=== PATIENT | female | born 1975 | race Caucasian/White ===

== ENCOUNTER 2019-08-17 10:19 | Emergency (ER) | payer OTHER, SELFPAY ==
[2019-08-17 10:44] VITALS: BP 147/85; PULSE 56; RESP 18; TEMP 36.4; O2SAT 100
[2019-08-17] MEDS: SODIUM CHLORIDE 0.9% IV 1,000 ML 999 ML IV CONT (11:37)
[2019-08-17] MEDS: KETOROLAC 30 MG/ML VIAL (*BKC) IV PUSH (11:38)
[2019-08-17] MEDS: METOCLOPRAMIDE HCL INJ 10 MG/2 ML VIAL IV PUSH (11:38)
--- NOTE | 2019-08-17 11:42 | ED.HA ---
HPI - Headache General Chief Complaint: Headache Stated Complaint: MIGRAINE Time Seen by Provider: 08/17/19 11:09 Source: patient Mode of arrival: ambulatory Limitations: no limitations History of Present Illness HPI Narrative: This is a 44 year old female that presents to the ER for migraine since this morning. Reports a throbbing pain on the right frontal region. Associated with nausea. Also reports some photophobia and blurry vision. Reports a history of migraines. She tried to take an anti-inflammatory earlier this morning with little relief. Denies fever, stiff neck, vomiting, numbness or weakness. Related Data Home Medications Medication Instructions Recorded Confirmed sertraline mg 08/17/19 trazodone 08/17/19 Allergies Allergy/AdvReac Type Severity Reaction Status Date / Time codeine Allergy Unknown Confusion Verified 08/17/19 10:47 Review of Systems Review of Systems: Narrative: CONSTITUTIONAL: Denies fever ENT: Denies rhinorrhea, congestion, sore throat GASTROINTESTINAL: Denies vomiting NEUROLOGIC: Reports headache. Denies numbness, or weakness. All systems reviewed & are unremarkable except as noted in HPI and below PMFSH Past Medical History Medical History (Updated 08/17/19 @ 12:44 by Mary Kay Hernandez PA-C) History of anxiety History of depression History of migraine Surgical History Surgical History (Updated 08/17/19 @ 11:46 by Mary Kay Hernandez PA-C) History of inguinal hernia repair Social History Social History (Updated 08/17/19 @ 11:46 by Mary Kay Hernandez PA-C) Smoking status: Never smoker Substance use: never Gender identity (if verbalized by the patient): Female Exam Narrative: Exam Narrative: GENERAL: Well-appearing, well-nourished, and in mild acute distress due to pain. HEAD: Normocephalic, atraumatic. EYES: PERRLA and EOMI. ENT: Nares clear, no rhinorrhea or epistaxis. Mucous membranes moist. Oropharynx without tonsillar hypertrophy exudate or other lesions. Bilateral TMs pearly benton non-bulging NECK: Supple. No adenopathy or masses. CHEST: Clear to auscultation. No respiratory distress. No wheezes rales or rhonchi HEART: Regular rate and rhythm. No murmur heard. Normal peripheral pulses. EXTREMITIES: Normal range of motion. No edema. Strength equal in bilateral upper extremities (5/5) SKIN: Warm, dry, no rash. NEURO: No focal deficits. Alert and oriented x3. CN II-XII grossly intact PSYCH: Normal mood and affect Course Vital Signs Vital signs: Vital Signs Temperature 97.6 F 08/17/19 10:44 Pulse Rate 56 L 08/17/19 10:44 Respiratory Rate 18 08/17/19 10:44 Blood Pressure 147/85 H 08/17/19 10:44 Pulse Oximetry 100 08/17/19 10:44 Temperature 97.6 F 08/17/19 12:17 Pulse Rate 62 08/17/19 11:43 Respiratory Rate 18 08/17/19 11:43 Blood Pressure 122/68 08/17/19 11:43 Pulse Oximetry 95 08/17/19 11:43 MDM - Headache MDM Narrative Medical decision making narrative: Patient presents the emergency department for migraine headache since this morning. She reports history of migraines. She is neurologically intact. She is afebrile and nontoxic-appearing. She reports relief after migraine cocktail. She is to follow-up with her primary care doctor. She was given warnings to return to the ER Critical Care Time Critical Care Time Critical Care Time: No Discharge Plan Discharge Clinical Impression: Migraine Qualifiers: Migraine type: unspecified Status migrainosus presence: without status migrainosus Intractability: not intractable Qualified Code(s): G43.909 - Migraine, unspecified, not intractable, without status migrainosus Patient Disposition: Home, Self-Care Condition: Stable Instructions: Migraine Headache (ED) Additional Instructions: Return to the emergency department if you experience fever, stiff neck, vision changes, vomiting, sudden onset numbness or weakness, or any other symptoms that are concerning to y
[2019-08-17 11:43] VITALS: BP 122/68; PULSE 62; RESP 18; O2SAT 95
[2019-08-17 12:16] VITALS: TEMP 36.4
[2019-08-17 12:17] VITALS: TEMP 36.4
[2019-08-17 13:29] VITALS: BP 113/56; PULSE 65; RESP 18; O2SAT 99
== END 2019-08-17 13:31 | disposition home or self-care (01) ==
PROVIDERS: Emergency Provider Emergency Medicine; PCP Internal Medicine Infectious Disease
DX: G43.909 Migraine, unspecified, not intractable, without status migrainosus (principal); F41.9 Anxiety disorder, unspecified; F32.9 Major depressive disorder, single episode, unspecified
CPT/HCPCS: 96365; 96375; 99284; J0131; J1100; J1200; J1885; J2765; J7030